=== PATIENT | male | born 1990 | race Caucasian/White ===

== ENCOUNTER 2017-01-04 22:16 | Emergency (ER) | payer SELFPAY | END 2017-01-04 23:30 | disposition home or self-care (01) | LOC: D.ER 22:16 | DX: M54.5 Low back pain (principal); M54.30 Sciatica, unspecified side; S39.012A Strain of muscle, fascia and tendon of lower back, initial encounter; X58.XXXA Exposure to other specified factors, initial encounter; Y93.89 Activity, other specified; Y92.89 Other specified places as the place of occurrence of the external cause; F90.9 Attention-deficit hyperactivity disorder, unspecified type; F17.200 Nicotine dependence, unspecified, uncomplicated ==